=== PATIENT | female | born 1970 | race Two or more races ===

== ENCOUNTER 2016-03-30 21:05 | Emergency (ER) | payer MEDICAID, OTHER ==
[~2016-03-30] VITALS: Ht 157.5 cm; Wt 56.7 kg
[2016-03-30 21:29] VITALS: BP 128/89
--- NOTE | 2016-03-30 22:04 | NUR ---
PT TAKEN TO [facility] FROM [facility]
--- NOTE | 2016-03-30 22:19 | NUR ---
PT RETURN FROM XRAY TO LOBBY
--- NOTE | 2016-03-30 23:31 | NUR ---
PT TAKEN TO BED 4
[2016-03-30] MEDS ORDERED: LIDOCAINE 1% 500 MG/50 ML VIAL INJ ONE (23:35)
--- NOTE | 2016-03-30 23:42 | NUR ---
PATIENT PRESENTS TO ED WITH left pinky swollen toe . PT DENIES N/V/D; SKIN IS PINK/WARM/DRY; AAOX4 WITH EVEN AND STEADY GAIT; LUNGS CLEAR BL; HR EVEN AND REGULAR; PT DENIES ANY FEVER, CP, SOB, OR COUGH AT THIS TIME; PATIENT STATES PAIN OF 9/10 AT THIS TIME; VSS; PATIENT POSITIONED FOR COMFORT; HOB ELEVATED; BEDRAILS UP X2; BED DOWN. ER MD MADE AWARE OF PT STATUS.
--- NOTE | 2016-03-31 00:03 | NUR ---
dr castro will use lidocaine for procedure
--- NOTE | 2016-03-31 00:06 | NUR ---
Dr. Liang evaluating patient at bedside.
--- NOTE | 2016-03-31 00:10 | NUR ---
dr castro injected lidocain to numb left toe area. pt tolerated.
--- NOTE | 2016-03-31 00:29 | NUR ---
DR. CEBALLOS AT PT BEDSIDE
--- NOTE | 2016-03-31 00:30 | NUR ---
DR NIEVES AT BEDSIDE TO ALIGN LEFT PINK TOE.
--- NOTE | 2016-03-31 00:39 | NUR ---
XR AT BEDSIDE FOR LEFT PINKY TOE
[2016-03-31 01:30] VITALS: BP 125/81
== END 2016-03-31 01:31 | disposition home or self-care (01) ==
LOC: MED 21:05
DX: S92.512A Displaced fracture of proximal phalanx of left lesser toe(s), initial encounter for closed fracture (principal); Z88.0 Allergy status to penicillin; W51.XXXA Accidental striking against or bumped into by another person, initial encounter; Y93.89 Activity, other specified; Y92.89 Other specified places as the place of occurrence of the external cause; Y99.8 Other external cause status
CPT/HCPCS: 28630; 73660; 81002; 81025; 99284; J2001; Q0092

== ENCOUNTER 2021-05-30 20:47 | Emergency (ER) | payer OTHER ==
[~2021-05-30] VITALS: Ht 144.8 cm; Wt 50.0 kg
[2021-05-30 21:17] VITALS: BP 140/93
--- NOTE | 2021-05-30 21:22 | NUR ---
PT TAKEN TO BED 6.
--- NOTE | 2021-05-30 21:24 | NUR ---
TONYA MOMIN MADE AWARE.
[2021-05-30] MEDS ORDERED: predniSONE 20 MG TAB PO ONE (21:30)
--- NOTE | 2021-05-30 21:35 | NUR ---
SEEN AND EXAMINED BY TONYA WITH ORDERS AND CARRIED OUT.
--- NOTE | 2021-05-30 21:38 | NUR ---
MEDICATED PER [facility] ORDER, TOLERATED WELL.
[2021-05-30] MEDS ORDERED: diphenhydrAMINE 50 MG CAP PO ONE (21:40)
[2021-05-30] MEDS ORDERED: PRED20TA5 PO (21:44)
[2021-05-30] MEDS ORDERED: BEN50 PO (21:44)
[2021-05-30 22:15] VITALS: BP 122/81
--- NOTE | 2021-05-30 22:15 | NUR ---
Patient discharged with v/s stable. Written and verbal after care instructions given and explained. Patient alert, oriented and verbalized understanding of instructions. Ambulatory with steady gait. All questions addressed prior to discharge. ID band removed. Patient advised to follow up with PMD. Rx of DELTASONE, BENADRYL given. Patient educated on indication of medication including possible reaction and side effects. Opportunity to ask questions provided and answered.
== END 2021-05-30 22:15 | disposition home or self-care (01) ==
LOC: MED 20:47
DX: T78.49XA Other allergy, initial encounter (principal); R23.8 Other skin changes; Z79.899 Other long term (current) drug therapy; Z88.0 Allergy status to penicillin; X58.XXXA Exposure to other specified factors, initial encounter
CPT/HCPCS: 99283; J7512; Q0163

== ENCOUNTER 2021-11-02 19:50 | Emergency (ER) | payer OTHER ==
[~2021-11-02] VITALS: Ht 152.4 cm; Wt 54.4 kg
[~2021-11-02 19:50] MED LIST: BEN50 PO; PRED20TA5 PO
[2021-11-02 20:19] VITALS: BP 140/90
--- NOTE | 2021-11-02 20:22 | NUR ---
TO LOBBY A/W BED AMBULATORY
--- NOTE | 2021-11-02 21:34 | NUR ---
PT AMBULATED TO BED #7
--- NOTE | 2021-11-02 21:46 | NUR ---
Dr. Liang examining patient.
--- NOTE | 2021-11-02 22:00 | NUR ---
Patient discharged with v/s stable. Written and verbal after care instructions given and explained. Patient alert, oriented and verbalized understanding of instructions. Ambulatory with steady gait. All questions addressed prior to discharge. ID band removed. Patient advised to follow up with PMD. Rx of MIRALAX ZOFRAN BACTRIM given.
[2021-11-02] MEDS ORDERED: SULF-59 PO (22:09)
[2021-11-02] MEDS ORDERED: IBUP-2213 PO (22:09)
[2021-11-02] MEDS ORDERED: ONDA8TAB87 PO (22:09)
[2021-11-02] MEDS ORDERED: MIRABULK PO (22:09)
[2021-11-02] MEDS: KETOROLAC 60 MG/2 ML VIAL IM ONE (22:20)
[2021-11-02 22:26] VITALS: BP 111/82
--- NOTE | 2021-11-02 22:39 | NUR ---
The patient's care was reviewed and supervised by Paulina Adams RN.
== END 2021-11-02 22:00 | disposition home or self-care (01) ==
LOC: MED 19:50
DX: N39.0 Urinary tract infection, site not specified (principal); K59.00 Constipation, unspecified; R11.0 Nausea; Z88.0 Allergy status to penicillin; Z79.899 Other long term (current) drug therapy
CPT/HCPCS: 81002; 81025; 87086; 96372; 99283; J1885

== ENCOUNTER 2023-04-07 12:11 | Emergency (ER) | payer OTHER ==
[~2023-04-07] VITALS: Ht 134.6 cm; Wt 44.9 kg
[~2023-04-07 12:11] MED LIST changes: +IBUP-2213 PO; +MIRABULK PO; +ONDA8TAB87 PO; +SULF-59 PO
[2023-04-07 12:19] VITALS: PULSE 94; RESP 19; TEMP 98.3; O2SAT 98
[2023-04-07] MEDS ORDERED: KETOROLAC 30 MG/ML VIAL IM ONE (12:40)
[2023-04-07 12:52] VITALS: O2SAT 98
[2023-04-07 13:26] LABS: APPEARANCE,URINE CLEAR (CLEAR); BILIRUBIN,URINE NEGATIVE (NEGATIVE); BLOOD, URINE 1+ (NEGATIVE); COLOR,URINE YELLOW (YELLOW); LEUKOCYTE ESTERASE ,URINE NEGATIVE (NEGATIVE); NITRITE, URINE NEGATIVE (NEGATIVE); PROTEIN,URINE NEGATIVE (NEGATIVE); UGLUCOSE NEGATIVE (NEGATIVE); UROBILINOGEN,URINE 0.2 EU/dL (0.2 - 1)
[2023-04-07 13:38] LABS: BACTERIA,URINE FEW /HPF (None Seen); SQUAMOUS EPITHELIAL CELL,UR 0-3 (FEW) /LPF (0-3 (FEW)); WBC,URINE 0-5 /HPF (0-5)
[2023-04-07 13:51] LABS: BASOPHILS % (AUTO) 0.5 % (0.0-2.0); EOSINOPHILS # (AUTO) 0.1 K/uL (0-0.4); EOSINOPHILS % (AUTO) 1.3 % (0.0-4.0); HEMATOCRIT 36.3 % (36-48); HEMOGLOBIN 12.7 g/dL (12.0-16.0); LYMPHOCYTES # (AUTO) 0.9 K/uL (2.5-16.5); LYMPHOCYTES % (AUTO) 14.8 % (20.5-51.1); MEAN CORPUSCULAR HEMOGLOBIN 32 pg (27-31); MEAN CORPUSCULAR HGB CONC 35 g/dL (33-37); MEAN CORPUSCULAR VOLUME 91.3 fL (80-94); MONOCYTES # (AUTO) 0.3 K/uL (0.8-1.0); MONOCYTES % (AUTO) 4.9 % (1.7-9.3); NEUTROPHILS % (AUTO) 78.5 % (42.2-75.2); PLATELET COUNT (AUTO) 246 K/uL (140-450); RED BLOOD CELL COUNT(AUTO) 3.97 MIL/uL (4.20-5.40); RED CELL DISTRIBUTION WIDTH 13.4 % (11.6-13.7); WHITE BLOOD COUNT (AUTO) 6.4 K/uL (4.8-10.8)
[2023-04-07 14:16] LABS: ALBUMIN 3.5 g/dL (3.4-5.0); ANION GAP 11.1 (8-16); CALCIUM 9.6 mg/dL (8.5-10.1); CARBON DIOXIDE 27.5 mmol/L (21-32); CREATININE 0.6 mg/dL (0.6-1.3); POTASSIUM 3.6 mmol/L (3.5-5.1); TOTAL BILIRUBIN 0.6 mg/dL (0.0-1.0); TOTAL PROTEIN, SERUM 7.7 g/dL (6.4-8.2)
[2023-04-07] MEDS ORDERED: CIPR500T4 PO (15:42)
[2023-04-07] MEDS ORDERED: ACET-10509 PO (15:42)
[2023-04-07] MEDS ORDERED: METR-520 PO (15:42)
== END 2023-04-07 15:57 | disposition home or self-care (01) ==
LOC: MED 12:11
DX: N20.0 Calculus of kidney (principal); K57.92 Diverticulitis of intestine, part unspecified, without perforation or abscess without bleeding; Z79.899 Other long term (current) drug therapy; Z88.0 Allergy status to penicillin
CPT/HCPCS: 36415; 74176; 80053; 81001; 85025; 96372; 99285; J1885